=== PATIENT | male | born 1990 ===

== ENCOUNTER 2018-01-07 15:01 | Emergency (ER) | payer OTHER ==
--- NOTE | 2018-01-07 15:51 | ED PDOC ---
HPI: Psych/Substance Abuse Time Seen by Provider: 01/07/18 15:09 Chief Complaint (Nursing): Psychiatric Evaluation Chief Complaint (Provider): Psychiatric Evaluation History Per: Patient History/Exam Limitations: no limitations Onset/Duration Of Symptoms: Other Current Symptoms Are (Timing): Still Present Additional Complaint(s): 27 y/o male with a PMHx of glaucoma presenting for psychiatric evaluation. Patient states he was stopped by police because he was yelling due to being upset at something that happened a few years ago. Patient denies any SI or HI. He denies any complaints at this time. PMD: None reported Past Medical History Reviewed: Historical Data, Nursing Documentation, Vital Signs Vital Signs: Last Vital Signs Temp 97.8 F 01/07/18 15:06 Pulse 78 01/07/18 15:06 Resp 18 01/07/18 15:06 BP 132/90 01/07/18 15:06 Pulse Ox 99 01/07/18 15:06 - Medical History Other PMH: Glaucoma - Surgical History Surgical History: No Surg Hx - Family History Family History: States: Unknown Family Hx - Social History Current smoker - smoking cessation education provided: No Alcohol: None Drugs: Denies - Allergies Allergies/Adverse Reactions: Allergies Allergy/AdvReac Type Severity Reaction Status Date / Time No Known Allergies Allergy Verified 01/07/18 15:06 Review of Systems ROS Statement: Except As Marked, All Systems Reviewed And Found Negative Psych: Negative for: Suicidal ideation Physical Exam - Reviewed Nursing Documentation Reviewed: Yes Vital Signs Reviewed: Yes - Physical Exam Appears: Positive for: Non-toxic, No Acute Distress Head Exam: Positive for: ATRAUMATIC, NORMAL INSPECTION, NORMOCEPHALIC Skin: Positive for: Normal Color, Warm Neck: Positive for: Normal, Painless ROM Cardiovascular/Chest: Positive for: Regular Rate, Rhythm. Negative for: Murmur Respiratory: Positive for: Normal Breath Sounds. Negative for: Respiratory Distress Gastrointestinal/Abdominal: Positive for: Normal Exam, Soft. Negative for: Tenderness Back: Positive for: Normal Inspection. Negative for: L CVA Tenderness, R CVA Tenderness, Vertebral Tenderness Extremity: Positive for: Normal ROM. Negative for: Deformity Neurologic/Psych: Positive for: Alert, Oriented (x3). Negative for: Motor/ Sensory Deficits - ECG O2 Sat by Pulse Oximetry: 99 (RA) Pulse Ox Interpretation: Normal Medical Decision Making Medical Decision Makin:47 Impression: Psychiatric evaluation Plan: -Urine drug screen -Alcohol serum -Crisis evaluation Scribe Attestation: Documented by Regis Yuen, acting as a scribe for Stephanie Darling MD. Provider Scribe Attestation: All medical record entries made by the Scribe were at my direction and personally dictated by me. I have reviewed the chart and agree that the record accurately reflects my personal performance of the history, physical exam, medical decision making, and the department course for this patient. I have also personally directed, reviewed, and agree with the discharge instructions and disposition. Disposition - Clinical Impression Clinical Impression: Adjustment disorder, Marijuana abuse - Disposition Disposition: Routine/Home Disposition Time: 17:35 Condition: STABLE Additional Instructions: FOLLOW-UP WITH YOUR PMD. Instructions: Adjustment Disorder, Marijuana Use and Addiction Forms: [facility] (Niuean)
[2018-01-07 17:11] LABS: BARBITURATES, UR NEGATIVE (NEGATIVE); BENZODIAZEPINES, UR NEGATIVE (NEGATIVE); OPIATES, UR NEGATIVE (NEGATIVE); PHENCYCLIDINE, UR NEGATIVE (NEGATIVE)
[2018-01-07 18:09] VITALS: BP 116/72; PULSE 66; RESP 16; TEMP 98.1
[2018-01-08 11:26] VITALS: O2SAT 99
== END 2018-01-07 18:00 | disposition home or self-care (01) ==
LOC: EDBD 15:01 → H.ER 15:01
DX: F43.20 Adjustment disorder, unspecified (principal); F12.10 Cannabis abuse, uncomplicated; H40.9 Unspecified glaucoma